=== PATIENT | female | born 1995 | race Caucasian/White ===

== ENCOUNTER → 2017-01-03 | Outpatient (CLI) | payer MEDICAID ==
--- NOTE | 2017-01-03 16:21 | REP ---
Clinical: Dyspnea . Comparison: 07/01/2004 . Technique: PA and lateral. Findings: The mediastinum and cardiac silhouette are stable scoliosis is again identified/unchanged. The lung muñoz are clear and without acute consolidation, effusion, or pneumothorax. The skeletal structures are intact and normal. Ventriculoperitoneal shunt noted along the right chest wall. Impression: 1. No acute cardiopulmonary process. Signed by Davi Gonzales MD 01/03/2017 04:13 P
== END | disposition home or self-care (01) ==
LOC: M LRY 15:45
PROVIDERS: ATTEND Nurse Practitioner Family
DX: R50.9 Fever, unspecified (principal)

== ENCOUNTER → 2017-04-10 | Outpatient (CLI) | payer MEDICAID | LOC: M LRY 09:23 | PROVIDERS: ATTEND Family Medicine | DX: Z53.8 Procedure and treatment not carried out for other reasons (principal) ==

== ENCOUNTER → 2018-08-19 | Outpatient (REF) | payer MEDICAID ==
[2018-08-19 12:35] LABS: BASO % 0.3 % (0.0-1.0); EOS % 0.6 % (0.0-3.0); HEMATOCRIT 42.2 % (36.0-47.0); HEMOGLOBIN 13.9 g/dl (12.0-15.5); IMMATURE GRANULOCYTE % 0.5 % (0-3.0); LYMPH # 2.8 10^3/uL (1.5-6.5); LYMPH % 42.2 % (24.0-44.0); MEAN CORPUSCULAR HEMOGLOBIN 31.9 pg (27.0-33.0); MEAN CORPUSCULAR HGB CONC 32.9 g/dl (32.0-36.5); MEAN CORPUSCULAR VOLUME 96.8 fl (80.0-96.0); MONO # 0.6 10^3/uL (0.0-0.8); MONO % 9.3 % (0.0-5.0); NEUTROPHILS # 3.1 10^3/uL (1.8-7.7); NEUTROPHILS % 47.1 % (36.0-66.0); PLATELET COUNT, AUTOMATED 354 10^3/uL (150-450); RED BLOOD COUNT 4.36 10^6/uL (4.00-5.40); RED CELL DISTRIBUTION WIDTH 12.3 % (11.5-14.5); WHITE BLOOD COUNT 6.6 10^3/uL (4.0-10.0)
[2018-08-19 12:42] LABS: ALBUMIN/GLOBULIN RATIO 1.11 (1.00-1.93); ALKALINE PHOSPHATASE 37 U/L (45-117); ALT/SGPT 54 U/L (12-78); ANION GAP 6 MEQ/L (8-16); AST/SGOT 30 U/L (7-37); BILIRUBIN,TOTAL 0.3 MG/DL (0.2-1.0); BLOOD UREA NITROGEN 14 MG/DL (7-18); CARBON DIOXIDE LEVEL 31 MEQ/L (21-32); CHLORIDE LEVEL 104 MEQ/L (98-107); CHOLESTEROL LEVEL 247 MG/DL (<200); CHOLESTEROL RISK RATIO 5.613 (<5); GLOMERULAR FILTRATION RATE > 60.0 (>60); GLUCOSE, FASTING 79 MG/DL (70-100); HDL CHOLESTEROL 44 MG/DL (>40); LDL CHOLESTEROL 136 MG/DL (<100); NON-HDL-C 203 MG/DL; PHENOBARBITAL LEVEL 14.6 UG/ML (15.0-40.0); POTASSIUM SERUM 4.7 MEQ/L (3.5-5.1); SODIUM LEVEL 141 MEQ/L (136-145); TOTAL PROTEIN 7.6 GM/DL (6.4-8.2); TRIGLYCERIDES LEVEL 336 MG/DL (<150)
== END ==
LOC: M LAB REF 12:07
DX: E78.2 Mixed hyperlipidemia (principal); E55.9 Vitamin D deficiency, unspecified; G40.89 Other seizures

== ENCOUNTER → 2020-10-20 | Outpatient (CLI) | payer SELFPAY ==
[~2020-10-20] MED LIST: ACET160O13 PO; ACET325S6 PO; ATOR1TAB19 PO; CETI5SOL3 PO; CHIL160L2 PO; COMBAER6 INH; CVS100LI4 PO; DEPA1CAP PO; FENO45CA3 PO; FLINCHW2 PO; GUAI100S51 PO; IBUP100S65 PO; IPRA0.00 INH; PHEN20EL4 PO
== END ==
LOC: M LABSMTC 12:22
PROVIDERS: ATTEND Pediatrics
DX: Z20.828 Contact with and (suspected) exposure to other viral communicable diseases (principal)

== ENCOUNTER 2020-10-21 11:00 | Observation (INO) | payer MEDICAID ==
[~2020-10-21] VITALS: Ht 147.3 cm; Wt 62.2 kg
[2020-10-21] MEDS ORDERED: FENO45CA3 PO (11:24)
[2020-10-21] MEDS ORDERED: CETI5SOL3 PO (11:24)
[2020-10-21] MEDS ORDERED: PHEN20EL4 PO ×2 (11:24)
[2020-10-21] MEDS ORDERED: ATOR1TAB19 PO (11:24)
[2020-10-21] MEDS ORDERED: IBUP100S65 PO (11:24)
[2020-10-21] MEDS ORDERED: CHIL160L2 PO (11:24)
[2020-10-21] MEDS ORDERED: DEPA1CAP PO (11:24)
[2020-10-21] MEDS ORDERED: NS 1,000 ML IV ONE (12:30)
[2020-10-21] MEDS ORDERED: cefTRIAXone SOD 1 GM in D5W MINI-BAG PLUS 50 ML IV ONE (12:30)
[2020-10-21 12:40] LABS: BASO % 0.5 % (0.0-1.0); EOS % 0.3 % (0.0-3.0); HEMATOCRIT 43.3 % (36.0-47.0); HEMOGLOBIN 13.9 g/dl (12.0-15.5); LYMPH # 0.8 10^3/uL (1.5-5.0); MEAN CORPUSCULAR HEMOGLOBIN 30.4 pg (27.0-33.0); MEAN CORPUSCULAR HGB CONC 32.1 g/dl (32.0-36.5); MEAN CORPUSCULAR VOLUME 94.7 fl (80.0-96.0); MONO # 0.4 10^3/uL (0.0-0.8); MONO % 10.8 % (0.0-5.0); NEUTROPHILS # 2.5 10^3/uL (1.5-8.5); NEUTROPHILS % 66.9 % (36.0-66.0); PLATELET COUNT, AUTOMATED 213 10^3/uL (150-450); RED BLOOD COUNT 4.57 10^6/uL (4.00-5.40); WHITE BLOOD COUNT 3.7 10^3/uL (4.0-10.0)
[2020-10-21 13:27] LABS: BLOOD UREA NITROGEN 6 MG/DL (7-18); CALCIUM LEVEL 9.4 MG/DL (8.5-10.1); CARBON DIOXIDE LEVEL 25 MEQ/L (21-32); CHLORIDE LEVEL 105 MEQ/L (98-107); GLOMERULAR FILTRATION RATE > 60.0 (>60); GLUCOSE, FASTING 96 MG/DL (70-100); POTASSIUM SERUM 3.7 MEQ/L (3.5-5.1); SODIUM LEVEL 136 MEQ/L (136-145)
--- NOTE | 2020-10-21 14:40 | REP ---
INDICATION: fever, cough. COMPARISON: Comparison chest x-ray January 03, 2017.. TECHNIQUE: Portable sitting AP radiograph. FINDINGS: A right-sided ventriculoperitoneal shunt catheter is noted in place coursing along the right chest. There is a dextroconvex curvature in the thoracic spine which is moderate in degree unchanged. The lungs are well inflated and free of infiltrate. Pleural angles are sharp. Heart size is normal. Pulmonary vasculature is not increased. IMPRESSION: No active disease. No infiltrate seen. <Electronically signed by Sinan Vargas > 10/21/20 1917
[2020-10-21] MEDS ORDERED: ALBUTEROL 90 MCG/ACT 8GM HFA INHALER INH ONE (15:15)
--- NOTE | 2020-10-21 16:03 | HPEPDOC ---
[facility] Medical History & Physical Date of Admission Oct 21, 2020 Date of Service: Oct 21, 2020 History and Physical CHIEF COMPLAINT: Fever HISTORY OF PRESENT ILLNESS: History was obtained from mother as patient is not able to provide a history due to cognitive impairment This is a 25-year-old female history of cerebral palsy and severe cognitive impairment who was brought in by her mother due to increased shortness of breath at home and fever reported as 104 at home. Mother says she also has a cough and brother recently but visited from [place] but is asymptomatic. Tells me patient otherwise has been around her baseline at home. She noticed she perhaps has been breathing a little heavier than normal and has some upper airway congestion, cough, and nasal congestion. Per mother at baseline she has significant cognitive delay, recognizes family, otherwise "doesn't remember what she had for lunch" PAST MEDICAL HISTORY: Cerebral palsy Seizure disorder PAST SURGICAL HISTORY: MILIEU THERAPIST Shunt Right 1 month old Double hernia repair, inguinal 7 months old R Hip surgery age 7 SOCIAL HISTORY: Per mother Shelia lives at home with her and doesn't drink alcohol smoke tobacco or use any illicit drugs. FAMILY HISTORY: Reviewed and none contributory. Mother healthy. ALLERGIES: Please see below. REVIEW OF SYSTEMS: Unable to obtain review of systems due to patient's cognitive impairment HOME MEDICATIONS: Please see below. PHYSICAL EXAMINATION: Constitutional: Awake and alert, in no apparent distress, mother at bedside ENT: Sclera are clear Respiratory: Lungs CTA bilaterally no wheezing. No respiratory distress. No use of accessory muscles. Saturating at 92% on room air Cardiovascular: RRR S1 and S2 are normal, no murmur Gastrointestinal: Abdomen is soft, non distended, non tender, BS present. Wears diapers Musculoskeletal: No lower extremity edema Neurologic: Severe cognitive impairment cannot follow instructions appropriately Skin: Warm, dry LABORATORY DATA: See below. IMAGING: Chest x-ray shown evidence no infiltrate or active process. MICROBIOLOGY: Please see below. ASSESSMENT/PLAN 25-year-old female history of cerebral palsy severe cognitive impairment otherwise healthy brought in by mother for increasing shortness of breath and fever home found to have Covid. Admitted for observation # Fever 2/2 COVID19 infection: Trend covid inflammatory markers Ferritin, D- dimer, LDH, CRP, procalcitonin. Fu BCx. Tylenol liquid PRN fever. CXR doesn't show infiltrates. Maintain o2 >90% with supplemental oxygen by NC. Albuterol inhaler PRN. No need for ramdasivir or steroids at this time due to very mild disease process. Not suspecting bacterial PNA, no ABx needed. IVFs slow rate. Repeat lactate normal. # Seizure disorder: continue phenobarb elixir, and depakote sprinkle. # Cerebral palsy and severe cognitive impairment: meds liquid if possible. Fall precautions. # DVT prophylaxis: Lovenox A Yousef Hospitalist Vital Signs Vital Signs Date Time Temp Pulse Resp B/P (MAP) Pulse Ox O2 Delivery O2 Flow Rate FiO2 10/21/20 11:54 20 91 Room Air 10/21/20 11:04 99.4 110 130/69 Laboratory Data Labs 24H Laboratory Tests 2 10/21/20 11:19: Urine Color YELLOW, Urine Appearance CLEAR, Urine pH 5.0, Urine Specific [place] 1.028, Urine Protein 1+H, Urine Glucose (UA) NEGATIVE, Urine Ketones NEGATIVE, Urine Blood NEGATIVE, Urine Nitrite NEGATIVE, Urine Bilirubin NEGATIVE, Urine Urobilinogen 0.2, Urine Leukocyte Esterase NEGATIVE, Urine WBC (Auto) 2, Urine RBC (Auto) 1, Urine Hyaline Casts (Auto) 0, Urine Bacteria (Auto) NEGATIVE, Urine Squamous Epithelial Cells 0, Urine Amorphous Sediment SMALLH, Urine Mucus (Auto) SMALL, Urine Sperm (Auto) 10/21/20 12:24: Immature Granulocyte % (Auto) 0.5, Neutrophils (%) (Auto) 66.9H, Lymphocytes (%) (Auto) 21.0L, Monocytes (%) (Auto) 10.8H, Eosinophils (%) (Auto) 0.3, Basophils (%) (Auto) 0.5, Neutrophils # (Auto) 2.5, Lymphocytes # (Auto) 0.8L, Monocytes # (Auto) 0.4, Eosinophils # (Auto) 0.0, Basophils # (Auto) 0.0, Nucleated Red Blood Cells % (auto) 0.0, Anion Gap 6L, Glomerular Filtration Rate > 60.0, Lactic Acid Level 2.5*H, Calcium Level 9.4 CBC/BMP Laboratory Tests 10/21/20 12:24 Microbiology Microbiology 10/21/20 Respiratory Virus Panel (PCR) (YAO) - Final, Complete SARS-CoV-2 (COVID 19) 10/21/20 Blood Culture, Received Pending Home Medications Scheduled Atorvastatin Calcium (Atorvastatin Calcium) 10 Mg Tablet, 10 MG PO QPM Cetirizine Hcl (Cetirizine HCl) 1 Mg/1 Ml Solution, 10 ML PO QHS Divalproex Sodium (Depakote Sprinkle) 125 Mg Cap., 375 MG PO BID SPRINKLE CONTENTS ONTO A SPOON WITH APPLESAUCE. Fenofibric Acid (Choline) (Fenofibric Acid) 45 Mg Capsule.dr, 45 MG PO QPM SPRINKLE CONTENTS ON SPOON WITH APPLESAUCE AND EVENING DOSE OF DEPAKOTE Phenobarbital (Phenobarbital) 20 Mg/5 Ml Elixir, 5 ML PO BID Scheduled PRN Acetaminophen (Children's [place]) 160 Mg/5 Ml Liquid, 20 ML PO Q4H PRN for PAIN / FEVER Ibuprofen (Ibuprofen) 100 Mg/5 Ml Oral.susp, 20 ML PO Q6H PRN for PAIN Allergies Coded Allergies: amoxicillin (Verified Allergy, Unknown, vomiting, 10/21/20) clavulanic acid (Verified Allergy, Unknown, vomiting, 10/21/20) diazepam (Verified Allergy, Unknown, 10/21/20) A-FIB/CHADSVASC A-FIB History Current/History of A-Fib/PAF?: No MARIE MADDEN MD Oct 21, 2020 16:03
[2020-10-21] MEDS ORDERED: COMBIVENT RESPIMAT 100-20MCG INHALER 4GM INH PRN (16:15)
[2020-10-21] MEDS ORDERED: ACETAMINOPHEN 325 MG/10.15 ML UDC PO ONE (17:00)
[2020-10-21] MEDS: NS 1,000 ML IV SCH (17:00)
[2020-10-21] MEDS ORDERED: IBUPROFEN 100 MG/5 ML SUSP UDC DYE FREE PO PRN (17:30)
[2020-10-21 17:43] LABS: INR 0.92; PROTHROMBIN TIME 12.6 SECONDS (12.5-14.3)
[2020-10-21 17:44] LABS: PARTIAL THROMBOPLASTIN TIME 23.7 SECONDS (24.2-38.5)
[2020-10-21 17:47] LABS: D-DIMER QUANT 678.84 ng/ml (<500)
[2020-10-21 17:54] LABS: ALBUMIN 3.1 GM/DL (3.2-5.2); ALT/SGPT 122 U/L (12-78); BILIRUBIN,DIRECT < 0.1 MG/DL (0.0-0.2); BILIRUBIN,TOTAL 0.1 MG/DL (0.2-1.0); C REACTIVE PROTEIN QUANTITATIV 3.01 MG/DL (0.00-0.30); FERRITIN 470 NG/ML (8-252); LDH LACTATE DEHYDROGENASE 217 U/L (84-246); TOTAL PROTEIN 6.8 GM/DL (6.4-8.2)
[2020-10-21 18:15] VITALS: BP 136/74
[2020-10-21 20:00] VITALS: BP 119/59; O2SAT 96
[2020-10-21] MEDS ORDERED: guaiFENesin SYRUP 200 MG/10 ML UDC PO PRN (20:15)
[2020-10-21] MEDS ORDERED: SODIUM CHLORIDE NASAL 0.65% SPRAY BTL (OCEAN) PRN (20:15)
[2020-10-21] MEDS ORDERED: CETIRIZINE (ZyrTEC) 5 MG/5 ML UDC DYE FREE PO SCH (21:00)
[2020-10-21] MEDS ORDERED: ATORVASTATIN 10 MG TAB PO SCH (21:00)
[2020-10-21] MEDS: DIVALPROEX SPRINKLE 125 MG CAP PO SCH (21:23)
[2020-10-21] MEDS: PHENobarbital ELIX 20 MG/5 ML UD PO SCH (21:24)
[2020-10-21] MEDS: ACETAMINOPHEN 325 MG/10.15 ML UDC PO PRN (23:51)
[2020-10-22] VITALS: O2SAT 94
[2020-10-22 04:00] VITALS: BP 92/53; O2SAT 92
--- NOTE | 2020-10-22 07:53 | IPNPDOC ---
Text Note Date of Service The patient was seen on 10/22/20. NOTE Subjective: Issue seen and examined this morning at bedside. Mother at bedside father was there on video call. Did well overnight. Continues to have fevers for which Tylenol and ibuprofen in combination are helping. Patient enjoys to sleep prone which happens to shown to have some benefit in Covid patients. I encouraged the patient to continue to prone home as tolerated. She was saturating at 98% on 2 L oxygen which is not necessary my goal is for oxygen to be at 90% or greater. She was taken off the oxygen and saturated well over 90%. Objective: Constitutional: Awake and alert, in no apparent distress, mother at bedside ENT: Sclera are clear Respiratory: Lungs CTA bilaterally no wheezing. No respiratory distress. No use of accessory muscles. Saturating at >90% on room air off of oxygen Cardiovascular: RRR S1 and S2 are normal, no murmur Gastrointestinal: Abdomen is soft, non distended, non tender. Wears diapers Musculoskeletal: No lower extremity edema Neurologic: Severe cognitive impairment cannot follow instructions appropriately Skin: Warm, dry Assessment/plan: 25-year-old female history of cerebral palsy severe cognitive impairment otherwise healthy brought in by mother for increasing shortness of breath and fever home found to have Covid. Admitted for observation # Fever 2/2 COVID19 infection: Trend covid inflammatory markers Ferritin, D-d robert, LDH, CRP, procalcitonin. Fu BCx. Tylenol liquid PRN fever. CXR doesn't show infiltrates. Mo2 is >90% off of o2. Albuterol inhaler PRN. No need for ramdasivir or steroids at this time due to mild disease process. Not suspecting bacterial PNA, no ABx needed. Repeat lactate normal with low volume IVFs. Patient discharged home on 10/22/2020 was symptomatically treatment of her fevers. Mother given instructions and instructed that both her father should self isolate per CDC recommendations # Seizure disorder: continue phenobarb elixir, and depakote sprinkle. # Cerebral palsy and severe cognitive impairment: meds liquid if possible. Fall precautions. # DVT prophylaxis: Lovenox A Yousef Hospitalist VS,Fishbone, I+O VS, Fishbone, I+O Laboratory Tests 10/21/20 12:24 Vital Signs Date Time Temp Pulse Resp B/P (MAP) Pulse Ox O2 Delivery O2 Flow Rate FiO2 10/22/20 04:00 98.9 85 22 92/53 (66) 93 Nasal Cannula 2.0 I&O- Last 24 Hours up to 6 AM 10/22/20 06:00 Intake Total 1450 ml Output Total 0 ml Balance 1450 ml MARIE MADDEN MD Oct 22, 2020 07:53
[2020-10-22 08:00] VITALS: BP 123/59; O2SAT 100
[2020-10-22 08:14] LABS: HEMATOCRIT 39.6 % (36.0-47.0); HEMOGLOBIN 12.7 g/dl (12.0-15.5); MEAN CORPUSCULAR HEMOGLOBIN 31.1 pg (27.0-33.0); MEAN CORPUSCULAR HGB CONC 32.1 g/dl (32.0-36.5); MEAN CORPUSCULAR VOLUME 96.8 fl (80.0-96.0); PLATELET COUNT, AUTOMATED 179 10^3/uL (150-450); RED BLOOD COUNT 4.09 10^6/uL (4.00-5.40); WHITE BLOOD COUNT 4.5 10^3/uL (4.0-10.0)
[2020-10-22 08:31] LABS: LYMPHOCYTES 39 % (16-44); MONOCYTES 2 % (0-5); NEUTROPHILS 54 % (28-66); NUCLEATED RED BLOOD CELL 1 % (0-0)
[2020-10-22 08:32] LABS: PLATELET ESTIMATE NORMAL (NORMAL)
[2020-10-22 08:33] LABS: INR 0.93; PROTHROMBIN TIME 12.7 SECONDS (12.5-14.3)
[2020-10-22 08:34] LABS: PARTIAL THROMBOPLASTIN TIME 29.3 SECONDS (24.2-38.5)
[2020-10-22 08:49] LABS: ALBUMIN 2.9 GM/DL (3.2-5.2); ALT/SGPT 114 U/L (12-78); BILIRUBIN,DIRECT < 0.1 MG/DL (0.0-0.2); BILIRUBIN,TOTAL 0.1 MG/DL (0.2-1.0); BLOOD UREA NITROGEN 8 MG/DL (7-18); CALCIUM LEVEL 7.9 MG/DL (8.5-10.1); CARBON DIOXIDE LEVEL 27 MEQ/L (21-32); CHLORIDE LEVEL 108 MEQ/L (98-107); CREATININE FOR GFR 0.59 MG/DL (0.55-1.30); FERRITIN 457 NG/ML (8-252); GLOMERULAR FILTRATION RATE > 60.0 (>60); GLUCOSE, FASTING 105 MG/DL (70-100); MAGNESIUM LEVEL 1.7 MG/DL (1.8-2.4); SODIUM LEVEL 142 MEQ/L (136-145); TOTAL PROTEIN 6.3 GM/DL (6.4-8.2)
[2020-10-22] MEDS ORDERED: ENOXAPARIN 40MG/0.4ML SYRINGE (J1650 PER 10MG) SC SCH (09:00)
[2020-10-22] MEDS: DIVALPROEX SPRINKLE 125 MG CAP PO SCH (09:52)
[2020-10-22] MEDS: ACETAMINOPHEN 325 MG/10.15 ML UDC PO PRN (09:52)
[2020-10-22] MEDS: PHENobarbital ELIX 20 MG/5 ML UD PO SCH (09:52)
[2020-10-22 11:30] VITALS: O2SAT 93
[2020-10-22] MEDS ORDERED: ACET325S6 PO (11:38)
[2020-10-22] MEDS ORDERED: GUAI100S51 PO (11:38)
[2020-10-22] MEDS ORDERED: COMBAER6 INH (11:38)
[2020-10-22] MEDS ORDERED: IBUP100S65 PO (11:42)
[2020-10-22] MEDS: NS 1,000 ML IV SCH (11:43)
--- NOTE | 2020-10-22 16:41 | ECGEPIP ---
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 Electronically Signed on 10-22-2020 16:41:50 EST by Manuel Cabrera
== END 2020-10-22 15:10 | disposition home health service (06) ==
LOC: EDBD 11:00 → M ED 11:00 → INTOOBSV 15:52 → EEVIPCON 15:52 → M ED INP 15:52 → M 4MAIN 18:20
PROVIDERS: ADMIT Family Medicine; ATTEND Family Medicine
DX: U07.1 COVID-19 (principal); R50.9 Fever, unspecified; R06.02 Shortness of breath; G80.9 Cerebral palsy, unspecified; F72 Severe intellectual disabilities; G40.909 Epilepsy, unspecified, not intractable, without status epilepticus; Z79.899 Other long term (current) drug therapy; Z88.0 Allergy status to penicillin; Z88.1 Allergy status to other antibiotic agents; Z88.8 Allergy status to other drugs, medicaments and biological substances
CPT/HCPCS: 36415; 71045; 80048; 80076; 81001; 82728; 83605; 83615; 83735; 84145; 85025; 85379; 85384; 85610; 85730; 86140; 87040; 87486; 87581; 87633; 87798; 93005; 96372; 96374; 99284; J1650

== ENCOUNTER 2020-10-25 20:17 | Inpatient (IN) | payer MEDICAID ==
[~2020-10-25] VITALS: Ht 147.3 cm; Wt 63.0 kg
[~2020-10-25 20:17] MED LIST changes: -ACET160O13 PO; -CVS100LI4 PO; -FLINCHW2 PO; -IPRA0.00 INH
[2020-10-25] MEDS ORDERED: NS 500 ML IV ONE ×2 (20:45→23:45)
[2020-10-25] MEDS ORDERED: ACETAMINOPHEN 325 MG/10.15 ML UDC PO ONE (20:45)
[2020-10-25] MEDS ORDERED: dexameTHASONE 4 MG/ML 1ML VIAL (J1100 PER 1MG) IV ONE (20:45)
[2020-10-25] MEDS ORDERED: ACETAMINOPHEN *IV* 650 MG in IV 1 EA IV ONE (21:15)
[2020-10-25 22:02] LABS: VENOUS BASE EXCESS 3.3 (-2.0-2.0); VENOUS HCO3 30.7 MEQ/L (23.0-27.0); VENOUS O2 SATURATION 54.8 % (60.0-80.0); VENOUS PARTIAL PRESSURE O2 31.8 mmHg (30.0-50.0); VENOUS PH 7.327 UNITS (7.330-7.430); VENOUS STANDARD HCO3 26.4 MEQ/L; VENOUS TOTAL CO2 32.6 MEQ/L (24.0-28.0)
[2020-10-25] MEDS ORDERED: CVS100LI4 PO (22:04)
[2020-10-25] MEDS ORDERED: FLINCHW2 PO (22:04)
[2020-10-25] MEDS ORDERED: ACET160O13 PO (22:04)
[2020-10-25] MEDS ORDERED: IBUP100S65 PO (22:04)
[2020-10-25] MEDS ORDERED: IPRA0.00 INH (22:04)
[2020-10-25 22:07] LABS: BASO % 0.1 % (0.0-1.0); EOS % 0.4 % (0.0-3.0); HEMATOCRIT 37.3 % (36.0-47.0); HEMOGLOBIN 11.5 g/dl (12.0-15.5); LYMPH # 1.7 10^3/uL (1.5-5.0); LYMPH % 21.4 % (24.0-44.0); MEAN CORPUSCULAR HEMOGLOBIN 29.9 pg (27.0-33.0); MEAN CORPUSCULAR HGB CONC 30.8 g/dl (32.0-36.5); MEAN CORPUSCULAR VOLUME 97.1 fl (80.0-96.0); MONO # 0.4 10^3/uL (0.0-0.8); NEUTROPHILS # 5.6 10^3/uL (1.5-8.5); NEUTROPHILS % 72.7 % (36.0-66.0); PLATELET COUNT, AUTOMATED 399 10^3/uL (150-450); RED BLOOD COUNT 3.84 10^6/uL (4.00-5.40); WHITE BLOOD COUNT 7.8 10^3/uL (4.0-10.0)
[2020-10-25 22:34] LABS: ALT/SGPT 106 U/L (12-78); BILIRUBIN,DIRECT < 0.1 MG/DL (0.0-0.2); BILIRUBIN,TOTAL 0.2 MG/DL (0.2-1.0); BLOOD UREA NITROGEN 6 MG/DL (7-18); CALCIUM LEVEL 8.8 MG/DL (8.5-10.1); CARBON DIOXIDE LEVEL 28 MEQ/L (21-32); CHLORIDE LEVEL 108 MEQ/L (98-107); CK-MB VALUE MASS 1.2 NG/ML (<3.6); CPK CREATINE PHOSPHOKINASE 272 U/L (26-192); CREATININE FOR GFR 0.56 MG/DL (0.55-1.30); FERRITIN 778 NG/ML (8-252); GLOMERULAR FILTRATION RATE > 60.0 (>60); GLUCOSE, FASTING 96 MG/DL (70-100); LDH LACTATE DEHYDROGENASE 433 U/L (84-246); MB/CK RELATIVE INDEX 0.44 (< OR =4); POTASSIUM SERUM 4.5 MEQ/L (3.5-5.1); SODIUM LEVEL 143 MEQ/L (136-145); TROPONIN I < 0.02 NG/ML (< 0.10)
[2020-10-25] MEDS ORDERED: guaiFENesin DM LIQ 10ML UD PO PRN (23:45)
[2020-10-26] VITALS (16 sets, daily range): BP systolic 97–130; BP diastolic 62–86; O2SAT 83–99
--- NOTE | 2020-10-26 00:58 | HPEPDOC ---
[facility] [place] Medical History & Physical Date of Admission Oct 25, 2020 Date of Service: Oct 25, 2020 Attending Physician: Scottie Schmitt MD History and Physical CHIEF COMPLAINT: cough, shortness of breath HISTORY OF PRESENT ILLNESS: Shelia Galdamez is a 25 YO F with history of Cerebral palsy recently admitted 10/21/20-10/22/20 for COVID19 infection who presents to the ED this evening with her mother with complaint of continued fevers, coughing, loss of appetite and shortness of breath. Since the patient was discharged on Thursday, her mother reports she has been having continuous fevers at around 101 and chills with bouts of severe coughing nonproductive of sputum. Her mother reports the patient has not had an appetite and has only been drinking chicken broth. She has also had diarrhea, about 10 bowel movements a day, worsened by her coughing. She is incontinent of stool and urine at baseline. Her mother reports she has tried giving nebulizer treatments, Mucinex, cough medication but the patient does not seem to have gotten better. She has been coughing to the point where her mother's fearful she is not catching her breath. Her mother is also Covid positive. In the ED, the patient was found to be febrile at 101.8 rectally and saturating in the low 90s on 4 L nasal cannula. 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 FAMILY HISTORY: Reviewed and none contributory. Mother healthy. ALLERGIES: Please see below. REVIEW OF SYSTEMS: Unable to obtain, due to patient's debility HOME MEDICATIONS: Please see below. PHYSICAL EXAMINATION: VITAL SIGNS: see below GENERAL: Laying flat in bed, groaning HEENT: PERRL, EOMI, Oral mucous membranes are dry without lesions. NECK: unable to assess JVD. No adenopathy is appreciated. No thyromegaly CHEST/LUNGS: Patient is rhoncherous in all lung muñoz bilaterally. There is no subcutaneous air appreciated. There is no tenderness to the chest wall. HEART: tachycardic rate, regular rhythm. No murmurs, rubs, or gallops are appreciated. Distal pulses are 2+. No carotid bruits appreciated. ABDOMEN: Soft, slightly tender to deep palpation in RLQ/LLQ, and nondistended. Bowel sounds are positive. No organomegaly is appreciated. No masses are appreciated. There are no peritoneal signs. There is no [place] sign. EXTREMITIES: No peripheral edema. There is no focal long bone tenderness or defo rmity. SKIN: The patients skin is warm and dry, without rashes or lesions. PSYCHIATRIC: unable to assess NEUROLOGIC: unable to assess LABORATORY DATA: See below. IMAGING: CXR: Official read pending MICROBIOLOGY: Please see below. ASSESSMENT: This is a 25 YO F with history of cerebral palsy who presents with fevers, chills, loss of appetite and diarrhea in the setting of ongoing COVID-19 infection found to have hypoxia. PLAN: 1. Acute hypoxia secondary to COVID19 infection: -patient is saturating in low 90s on 4L nasal cannula in ED. oxygen titration orders, keep patient greater than 90% -Dexamethasone 6 mg IV daily -Davidson Sparksitusrobina Mucinex for cough -IV Tylenol for fevers -Continuous IV fluids 100 mL an hour -Lovenox for DVT prophylaxis 2. History of seizures: -The patient's mother reports she has not had a seizure in over 15 years -Continue home Depakote, phenobarbital 3. Hypercholesterolemia: -Continue home Lipitor DVT prophylaxis: Lovenox DISPO: Admit to COVID floor, pending clinical improvement Vital Signs Vital Signs Date Time Temp Pulse Resp B/P (MAP) Pulse Ox O2 Delivery O2 Flow Rate FiO2 10/25/20 22:30 91 28 124/61 (82) 94 Nasal Cannula 4.0 10/25/20 21:35 93 10/25/20 20:33 101.8 Laboratory Data Labs 24H Laboratory Tests 2 10/25/20 20:34: Immature Granulocyte % (Auto) 0.4, Neutrophils (%) (Auto) 72.7H, Lymphocytes (%) (Auto) 21.4L, Monocytes (%) (Auto) 5.0, Eosinophils (%) (Auto) 0.4, Basophils (%) (Auto) 0.1, Neutrophils # (Auto) 5.6, Lymphocytes # (Auto) 1.7, Monocytes # (Auto) 0.4, Eosinophils # (Auto) 0.0, Basophils # (Auto) 0.0, Nucleated Red Blood Cells % (auto) 0.3H, D-Dimer, Quantitative 1600.41H, Lactic Acid Level 3.8*H 10/25/20 20:35: Anion Gap 7L, Glomerular Filtration Rate > 60.0, Calcium Level 8.8, Ferritin 778H, Total Bilirubin 0.2, Direct Bilirubin < 0.1, Aspartate Amino Transf (AST/SGOT) 85H, Alanine Aminotransferase (ALT/SGPT) 106H, Alkaline Phosphatase 52, Lactate Dehydrogenase 433H, Total Creatine Kinase 272H, Creatine Kinase MB 1.2, Creatine Kinase MB Relative Index 0.44, Troponin I < 0.02, C-Reactive Protein, Quantitative 5.60H, Total Protein 7.0, Albumin 3.0L, Albumin/Globulin Ratio 0.8L 10/25/20 20:38: Blood Gas Bicarbonate Standard 26.4, Venous Blood pH 7.327L, Venous Blood Partial Pressure CO2 60.0H, Venous Blood Partial Pressure O2 31.8, Venous Blood Total Carbon Dioxide 32.6H, Venous Blood HCO3 30.7H, Venous Blood Oxygen Satu ration 54.8L, Venous Blood Base Excess 3.3H CBC/BMP Laboratory Tests 10/25/20 20:34 10/25/20 20:35 Microbiology Microbiology 10/25/20 Blood Culture, Received Pending 10/25/20 Blood Culture, Received Pending Home Medications Scheduled Atorvastatin Calcium (Atorvastatin Calcium) 10 Mg Tablet, 10 MG PO QHS Cetirizine Hcl (Cetirizine HCl) 1 Mg/1 Ml Solution, 10 ML PO QHS Divalproex Sodium (Depakote Sprinkle) 125 Mg Cap.spr, 375 MG PO BID SPRINKLE CONTENTS ONTO A SPOON WITH APPLESAUCE. Fenofibric Acid (Choline) (Fenofibric Acid) 45 Mg Capsule.dr, 45 MG PO QHS SPRINKLE CONTENTS ON SPOON WITH APPLESAUCE AND EVENING DOSE OF DEPAKOTE Multivitamin (Flintstones) 1 Each Tab.chew, 1 CHW PO QHS Phenobarbital (Phenobarbital) 20 Mg/5 Ml Elixir, 5 ML PO BID Scheduled PRN Acetaminophen (Children's Tylenol) 160 Mg/5 Ml Oral.susp, 640 MG PO Q4H PRN for PAIN / FEVER Guaifenesin (Tussin) 100 Mg/5 Ml Liquid, 400 MG PO Q4H PRN for CONGESTION Ibuprofen (Ibuprofen) 100 Mg/5 Ml Oral.susp, 400 MG PO Q6H PRN for PAIN / FEVER Ipratropium/Albuterol Sulfate (Iprat-Albut 0.5-3(2.5) mg/3 ml) 3 Ml Ampul.neb, 3 ML INH Q6H PRN for SHORTNESS OF BREATH Allergies Coded Allergies: amoxicillin (Verified Allergy, Unknown, vomiting, 10/21/20) clavulanic acid (Verified Allergy, Unknown, vomiting, 10/21/20) diazepam (Verified Allergy, Unknown, 10/21/20) GME ATTESTATION ATTENDING NOTE Family Medicine Attending Note: I was present on site to supervise [the resident]. We discussed the history and exam. I did not have a [id number] encounter with the patient per recent updated guidelines which allow us to have only one physician seeing COVID patient's. We conferred on the assessment and plan; I agree with the note as documented. Ms. Galdamez does need further support in the inpatient setting. Additionally I know her mother is trying as best she can, but her capacity to care for this patient while the mother herself is sick is likely reduced. (mercerizing range feeder) CHEYENNE RAYA MD Oct 25, 2020 22:59 Scottie Schmitt MD Oct 26, 2020 05:49
[2020-10-26] MEDS ORDERED: ACETAMINOPHEN *IV* 1,000 MG in IV 1 EA IV ONE (03:00)
[2020-10-26] MEDS: CETIRIZINE (ZyrTEC) 5 MG/5 ML UDC DYE FREE PO SCH ×3 (03:43→20:40)
[2020-10-26] MEDS: BENZONATATE 100 MG CAP PO SCH ×5 (03:44→20:42)
[2020-10-26] MEDS: DIVALPROEX SPRINKLE 125 MG CAP PO SCH ×3 (03:44→20:41)
[2020-10-26] MEDS: PHENobarbital ELIX 20 MG/5 ML UD PO SCH ×3 (03:44→20:42)
[2020-10-26] MEDS: NS 1,000 ML IV SCH ×2 (03:45→10:35)
[2020-10-26] MEDS: guaiFENesin 200 MG TAB PO SCH ×3 (07:32→20:57)
[2020-10-26 07:48] LABS: HEMOGLOBIN 10.2 g/dl (12.0-15.5); MEAN CORPUSCULAR HEMOGLOBIN 30.4 pg (27.0-33.0); MEAN CORPUSCULAR HGB CONC 31.9 g/dl (32.0-36.5); MEAN CORPUSCULAR VOLUME 95.5 fl (80.0-96.0); PLATELET COUNT, AUTOMATED 380 10^3/uL (150-450); RED BLOOD COUNT 3.35 10^6/uL (4.00-5.40); WHITE BLOOD COUNT 5.6 10^3/uL (4.0-10.0)
[2020-10-26 08:08] LABS: ALBUMIN 2.5 GM/DL (3.2-5.2); ALT/SGPT 80 U/L (12-78); BILIRUBIN,TOTAL 0.3 MG/DL (0.2-1.0); BLOOD UREA NITROGEN 5 MG/DL (7-18); CALCIUM LEVEL 8.4 MG/DL (8.5-10.1); CARBON DIOXIDE LEVEL 29 MEQ/L (21-32); CHLORIDE LEVEL 110 MEQ/L (98-107); CREATININE FOR GFR 0.47 MG/DL (0.55-1.30); GLOMERULAR FILTRATION RATE > 60.0 (>60); GLUCOSE, FASTING 93 MG/DL (70-100); MAGNESIUM LEVEL 1.9 MG/DL (1.8-2.4); POTASSIUM SERUM 4.1 MEQ/L (3.5-5.1); SODIUM LEVEL 144 MEQ/L (136-145); TOTAL PROTEIN 6.1 GM/DL (6.4-8.2)
--- NOTE | 2020-10-26 08:19 | REP ---
INDICATION: DYSPNEA/COUGH. Repeat dictation. Preliminary report is provided at the time of the exam by maxi OQUENDO. COMPARISON: Comparison chest x-ray October 21, 2020. TECHNIQUE: Portable upright AP chest radiograph. FINDINGS: There are bilateral mixed alveolar and interstitial infiltrates fairly extensively in the perihilar regions and left lower lobe region. Pleural angles are sharp. Heart is not enlarged. There is a dextroconvex curvature in the thoracic spine. Relatively low level of inspiration.. A right-sided ventriculoperitoneal shunt catheter is noted in place.. IMPRESSION: Fairly extensive bilateral infiltrates consistent with pneumonia.. <Electronically signed by Sinan Vargas > 10/26/20 [id number]
[2020-10-26 08:32] LABS: INR 0.93; PARTIAL THROMBOPLASTIN TIME 30.7 SECONDS (24.2-38.5); PROTHROMBIN TIME 12.7 SECONDS (12.5-14.3)
[2020-10-26 08:34] LABS: D-DIMER QUANT 1220.14 ng/ml (<500)
[2020-10-26 08:47] LABS: C REACTIVE PROTEIN QUANTITATIV 5.62 MG/DL (0.00-0.30); FERRITIN 551 NG/ML (8-252); LDH LACTATE DEHYDROGENASE 298 U/L (84-246); TRIGLYCERIDES LEVEL 298 MG/DL (<150); TROPONIN I < 0.02 NG/ML (< 0.10)
[2020-10-26] MEDS ORDERED: guaiFENesin ER 600 MG TAB PO SCH (09:00)
[2020-10-26] MEDS ORDERED: ENOXAPARIN 40MG/0.4ML SYRINGE (J1650 PER 10MG) SC SCH (09:00)
[2020-10-26] MEDS: ENOXAPARIN 60MG/0.6ML SYRINGE (J1650 PER 10MG) SC SCH ×2 (09:17→20:41)
[2020-10-26] MEDS: dexameTHASONE 20MG/5ML VIAL (J1100 PER 1MG) IV SCH (09:18)
[2020-10-26 10:14] LABS: HEPATITIS B SURFACE ANTIGEN NEGATIVE (NEGATIVE)
[2020-10-26 10:25] LABS: HIV 1&2 SCREEN CENTAUR NEGATIVE (NEGATIVE)
--- NOTE | 2020-10-26 16:35 | IPNPDOC ---
Text Note Date of Service The patient was seen on 10/26/20. NOTE Subjective: patient has severe intellectual disability and unable to provide answers. I saw patient and did physical examination. Objective: GENERAL APPEARANCE: Young female with cerebral palsy HEENT: no scleral icterus, no JVD, EOMI CARDIOVASCULAR: S1S2 LUNGS: Bilateral rhonchi ABDOMEN: soft & not tender w palpitation MUSCULOSKELETAL: no cyanosis, no swelling INTEGUMENT: no generalized palor NEUROLOGICAL: cranial nerve function from 2-12 intact Assessment and plan This is a 25 YO F with history of cerebral palsy who presents with fevers, chills, loss of appetite and diarrhea in the setting of ongoing COVID-19 infection found to have hypoxia. Acute hypoxemic respiratory failure Secondary to viral pneumonia secondary to COVID-19 Dexamethasone IV, Remdesevir IV Therapeutic dose of Lovenox Pneumonia Secondary to COVID-19 Fairly extensive bilateral infiltrates consistent with pneumonia.. History of seizures Continue home Depakote, phenobarbital Hypercholesterolemia Continue home Lipitor VS,Fishbone, I+O VS, Fishbone, I+O Laboratory Tests 10/25/20 20:34 10/25/20 20:35 10/26/20 07:11 Vital Signs Date Time Temp Pulse Resp B/P (MAP) Pulse Ox O2 Delivery O2 Flow Rate FiO2 10/26/20 14:00 95 High Flow Mask 7.0 10/26/20 12:00 100.0 92 21 118/86 (97) 10/25/20 21:35 93 I&O- Last 24 Hours up to 6 AM 10/26/20 06:00 Intake Total 1065 ml Balance 1065 ml BLADIMIR ZUNIGA DO Oct 26, 2020 16:35
[2020-10-26] MEDS: ATORVASTATIN 10 MG TAB PO SCH (20:39)
[2020-10-27] VITALS (16 sets, daily range): BP systolic 108–122; BP diastolic 62–67; O2SAT 90–98
[2020-10-27] MEDS ORDERED: ACETAMINOPHEN *IV* 650 MG in IV 1 EA IV ONE (01:30)
[2020-10-27] MEDS: BENZONATATE 100 MG CAP PO SCH ×5 (05:34→21:12)
[2020-10-27] MEDS: guaiFENesin 200 MG TAB PO SCH ×3 (05:34→20:28)
[2020-10-27 07:26] LABS: BASO % 0.1 % (0.0-1.0); EOS % 0.3 % (0.0-3.0); HEMATOCRIT 32.1 % (36.0-47.0); HEMOGLOBIN 10.2 g/dl (12.0-15.5); LYMPH # 2.2 10^3/uL (1.5-5.0); LYMPH % 31.7 % (24.0-44.0); MEAN CORPUSCULAR HEMOGLOBIN 30.7 pg (27.0-33.0); MEAN CORPUSCULAR HGB CONC 31.8 g/dl (32.0-36.5); MEAN CORPUSCULAR VOLUME 96.7 fl (80.0-96.0); MONO # 0.4 10^3/uL (0.0-0.8); MONO % 5.7 % (0.0-5.0); NEUTROPHILS # 4.2 10^3/uL (1.5-8.5); NEUTROPHILS % 60.9 % (36.0-66.0); PLATELET COUNT, AUTOMATED 442 10^3/uL (150-450); RED BLOOD COUNT 3.32 10^6/uL (4.00-5.40); WHITE BLOOD COUNT 6.9 10^3/uL (4.0-10.0)
[2020-10-27 07:48] LABS: ALBUMIN 2.4 GM/DL (3.2-5.2); ALT/SGPT 66 U/L (12-78); BILIRUBIN,DIRECT 0.1 MG/DL (0.0-0.2); BILIRUBIN,TOTAL 0.4 MG/DL (0.2-1.0); BLOOD UREA NITROGEN 9 MG/DL (7-18); CALCIUM LEVEL 8.7 MG/DL (8.5-10.1); CARBON DIOXIDE LEVEL 31 MEQ/L (21-32); CHLORIDE LEVEL 110 MEQ/L (98-107); CREATININE FOR GFR 0.54 MG/DL (0.55-1.30); FERRITIN 528 NG/ML (8-252); GLOMERULAR FILTRATION RATE > 60.0 (>60); GLUCOSE, FASTING 90 MG/DL (70-100); NT-PRO BNP 922 PG/ML (<125); POTASSIUM SERUM 3.6 MEQ/L (3.5-5.1); SODIUM LEVEL 143 MEQ/L (136-145)
[2020-10-27 07:52] LABS: C REACTIVE PROTEIN QUANTITATIV 5.38 MG/DL (0.00-0.30); TROPONIN I < 0.02 NG/ML (< 0.10)
[2020-10-27] MEDS: ENOXAPARIN 60MG/0.6ML SYRINGE (J1650 PER 10MG) SC SCH ×2 (08:37→20:28)
[2020-10-27] MEDS: PHENobarbital ELIX 20 MG/5 ML UD PO SCH ×2 (08:38→20:28)
[2020-10-27] MEDS: dexameTHASONE 20MG/5ML VIAL (J1100 PER 1MG) IV SCH (08:38)
[2020-10-27] MEDS: DIVALPROEX SPRINKLE 125 MG CAP PO SCH ×2 (08:38→20:29)
--- NOTE | 2020-10-27 09:20 | ECGEPIP ---
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
[2020-10-27] MEDS: LR 1,000 ML IV SCH (14:02)
--- NOTE | 2020-10-27 19:55 | IPNPDOC ---
Text Note Date of Service The patient was seen on 10/27/20. NOTE Subjective: patient has severe intellectual disability and unable to provide answers. Father is present in the room who provides most of the history. The patient continues to have a poor appetite, and per his assessment she is certainly not back to her baseline. Additionally, he reports that she is now beginning to cough and choke a time she is eating or taking pills. Typically at home she is able to feed herself without any issues, therefore this is certainly a change in status. Objective: GENERAL APPEARANCE: Young female with cerebral palsy HEENT: no scleral icterus, no JVD, EOMI CARDIOVASCULAR: Regular rate and rhythm with no murmurs, rubs, or gallops LUNGS: Bilateral rhonchi ABDOMEN: soft & not tender w palpitation MUSCULOSKELETAL: no cyanosis, no swelling INTEGUMENT: no generalized palor NEUROLOGICAL: cranial nerve function from 2-12 intact Assessment and plan This is a 25 YO F with history of cerebral palsy who presents with fevers, chills, loss of appetite and diarrhea in the setting of ongoing COVID-19 infection found to have hypoxia. Acute hypoxemic respiratory failure Secondary to viral pneumonia secondary to COVID-19 Dexamethasone IV, Remdesevir IV Therapeutic dose of Lovenox Continues to require oxygen supplementation Pneumonia Secondary to COVID-19 Fairly extensive bilateral infiltrates consistent with pneumonia. Coughing and choking with any oral intake This is certainly a departure from her baseline. Speech therapy consultation requested. We will keep her nothing by mouth except for medications until seen and evaluated by speech therapy. Poor appetite Will give her gentle lactated Ringer's rehydration until she is able to tolerate oral intake History of seizures Continue home Depakote, phenobarbital Hypercholesterolemia Continue home Lipitor VS,Fishbone, I+O VS, Fishbone, I+O Laboratory Tests 10/27/20 07:00 Vital Signs Date Time Temp Pulse Resp B/P (MAP) Pulse Ox O2 Delivery O2 Flow Rate FiO2 10/27/20 18:00 98 Nasal Cannula 6.0 10/27/20 16:00 98.5 75 20 108/66 (80) 10/25/20 21:35 93 I&O- Last 24 Hours up to 6 AM 10/27/20 06:00 Intake Total 2096 ml Balance 2096 ml DIANE OVALLE DO Oct 27, 2020 19:55
[2020-10-27] MEDS: ATORVASTATIN 10 MG TAB PO SCH (20:29)
[2020-10-27] MEDS: CETIRIZINE (ZyrTEC) 5 MG/5 ML UDC DYE FREE PO SCH ×2 (20:30→21:00)
[2020-10-28] VITALS (17 sets, daily range): BP systolic 104–128; BP diastolic 48–76; O2SAT 92–100
[2020-10-28] MEDS: ONDANSETRON 4MG/2ML VIAL IV PRN ×4 (01:53→21:39)
[2020-10-28] MEDS: LR 1,000 ML IV SCH ×2 (03:44→17:58)
[2020-10-28] MEDS: BENZONATATE 100 MG CAP PO SCH ×3 (05:57→21:37)
[2020-10-28] MEDS: guaiFENesin 200 MG TAB PO SCH ×3 (05:57→21:36)
[2020-10-28 07:57] LABS: BASO % 0.5 % (0.0-1.0); EOS % 0.5 % (0.0-3.0); HEMATOCRIT 32.4 % (36.0-47.0); HEMOGLOBIN 10.2 g/dl (12.0-15.5); LYMPH # 2.3 10^3/uL (1.5-5.0); LYMPH % 37.2 % (24.0-44.0); MEAN CORPUSCULAR HEMOGLOBIN 30.4 pg (27.0-33.0); MEAN CORPUSCULAR HGB CONC 31.5 g/dl (32.0-36.5); MEAN CORPUSCULAR VOLUME 96.7 fl (80.0-96.0); MONO # 0.5 10^3/uL (0.0-0.8); MONO % 7.6 % (0.0-5.0); NEUTROPHILS # 3.1 10^3/uL (1.5-8.5); NEUTROPHILS % 51.4 % (36.0-66.0); PLATELET COUNT, AUTOMATED 553 10^3/uL (150-450); RED BLOOD COUNT 3.35 10^6/uL (4.00-5.40); WHITE BLOOD COUNT 6.1 10^3/uL (4.0-10.0)
[2020-10-28 08:35] LABS: BLOOD UREA NITROGEN 12 MG/DL (7-18); CARBON DIOXIDE LEVEL 29 MEQ/L (21-32); CHLORIDE LEVEL 106 MEQ/L (98-107); CREATININE FOR GFR 0.36 MG/DL (0.55-1.30); GLOMERULAR FILTRATION RATE > 60.0 (>60); GLUCOSE, FASTING 85 MG/DL (70-100); POTASSIUM SERUM 4.1 MEQ/L (3.5-5.1); SODIUM LEVEL 142 MEQ/L (136-145)
[2020-10-28 08:36] LABS: ALBUMIN 2.5 GM/DL (3.2-5.2); ALT/SGPT 67 U/L (12-78); BILIRUBIN,DIRECT 0.1 MG/DL (0.0-0.2); BILIRUBIN,TOTAL 0.4 MG/DL (0.2-1.0); C REACTIVE PROTEIN QUANTITATIV 4.56 MG/DL (0.00-0.30); CALCIUM LEVEL 8.6 MG/DL (8.5-10.1); FERRITIN 464 NG/ML (8-252); MAGNESIUM LEVEL 1.9 MG/DL (1.8-2.4); NT-PRO BNP 669 PG/ML (<125); TOTAL PROTEIN 6.3 GM/DL (6.4-8.2)
[2020-10-28] MEDS: dexameTHASONE 20MG/5ML VIAL (J1100 PER 1MG) IV SCH (08:37)
[2020-10-28] MEDS: PHENobarbital ELIX 20 MG/5 ML UD PO SCH ×2 (08:38→21:36)
[2020-10-28] MEDS: DIVALPROEX SPRINKLE 125 MG CAP PO SCH ×2 (08:38→21:35)
[2020-10-28] MEDS: ENOXAPARIN 60MG/0.6ML SYRINGE (J1650 PER 10MG) SC SCH ×2 (08:39→21:37)
[2020-10-28] MEDS: SIMETHICONE 40MG/0.6ML DROPS 30ML PO PRN ×2 (10:18→21:39)
[2020-10-28] MEDS: PANTOPRAZOLE 40MG VIAL (C9113 PER 1) IV SCH (11:57)
--- NOTE | 2020-10-28 15:51 | IPN ---
PROGRESS NOTE DATE: 10/28/2020 SUBJECTIVE: Shelia is seen on 4 main admitted with COVID pneumonia with acute hypoxemic respiratory failure. She has a history of cerebral palsy, seizures, and hyperlipidemia. She is having some trouble with swallowing, coughing with eating that per her father has gotten better in the last 12 hours. No seizures have been noted. No stools since admission, but had perfuse diarrhea on . OBJECTIVE: VITAL SIGNS: Blood pressure 104/64, temperature 98.5 degrees, O2 saturation 97% on high-flow cannula. GENERAL APPEARANCE: Resting comfortably. HEENT: Unremarkable. LUNGS: Scattered rhonchi. HEART: Regular rhythm. ABDOMEN: Soft and nontender. No peripheral edema. Abdomen has no masses. LABORATORY DATA: White count 6.1, hemoglobin 10.2, platelets 553,000. Sodium 142, potassium 4.1, BUN 12, creatinine 0.3, glucose 85. Ferritin is progressively lower it is down to 464. C-reactive protein is falling steadily it is down to 4.5. ASSESSMENT AND PLAN: 1. COVID pneumonia. She is on intravenous (IV) Decadron 6 mg daily, remdesivir daily. 2. Abdominal distress. Seems to have responded to Zofran, although father said it wore off "pretty quickly" when increased the frequency of this. I will also add intravenous proton pump inhibitor (PPI) as she could have some gastritis from the steroids. 3. Cerebral palsy with seizures. This is stable. 4. Hyperlipidemia. Continue atorvastatin. 5. Swallowing difficulties. Speech therapy is pending.
[2020-10-28] MEDS: CETIRIZINE (ZyrTEC) 5 MG/5 ML UDC DYE FREE PO SCH (21:00)
[2020-10-28] MEDS: ATORVASTATIN 10 MG TAB PO SCH (21:37)
[2020-10-29] VITALS: O2SAT 95
[2020-10-29 02:00] VITALS: O2SAT 98
[2020-10-29 03:00] VITALS: O2SAT 98
[2020-10-29 04:00] VITALS: O2SAT 98
[2020-10-29] MEDS: LR 1,000 ML IV SCH ×2 (06:05→21:30)
[2020-10-29] MEDS: guaiFENesin 200 MG TAB PO SCH ×3 (06:05→21:33)
[2020-10-29] MEDS: BENZONATATE 100 MG CAP PO SCH ×3 (06:05→21:35)
[2020-10-29] MEDS: ONDANSETRON 4MG/2ML VIAL IV PRN ×2 (06:27→21:34)
[2020-10-29 07:11] LABS: BASO % 0.6 % (0.0-1.0); EOS % 0.3 % (0.0-3.0); HEMOGLOBIN 10.7 g/dl (12.0-15.5); LYMPH # 2.9 10^3/uL (1.5-5.0); LYMPH % 43.3 % (24.0-44.0); MEAN CORPUSCULAR HEMOGLOBIN 30.1 pg (27.0-33.0); MEAN CORPUSCULAR HGB CONC 31.5 g/dl (32.0-36.5); MEAN CORPUSCULAR VOLUME 95.8 fl (80.0-96.0); MONO # 0.5 10^3/uL (0.0-0.8); MONO % 7.4 % (0.0-5.0); NEUTROPHILS % 45.2 % (36.0-66.0); PLATELET COUNT, AUTOMATED 648 10^3/uL (150-450); RED BLOOD COUNT 3.55 10^6/uL (4.00-5.40); WHITE BLOOD COUNT 6.6 10^3/uL (4.0-10.0)
[2020-10-29 07:43] LABS: ALBUMIN 2.6 GM/DL (3.2-5.2); ALT/SGPT 74 U/L (12-78); BILIRUBIN,DIRECT 0.2 MG/DL (0.0-0.2); BILIRUBIN,TOTAL 0.4 MG/DL (0.2-1.0); BLOOD UREA NITROGEN 11 MG/DL (7-18); C REACTIVE PROTEIN QUANTITATIV 2.59 MG/DL (0.00-0.30); CALCIUM LEVEL 8.4 MG/DL (8.5-10.1); CARBON DIOXIDE LEVEL 33 MEQ/L (21-32); CHLORIDE LEVEL 104 MEQ/L (98-107); CREATININE FOR GFR 0.51 MG/DL (0.55-1.30); FERRITIN 514 NG/ML (8-252); GLOMERULAR FILTRATION RATE > 60.0 (>60); GLUCOSE, FASTING 72 MG/DL (70-100); MAGNESIUM LEVEL 1.9 MG/DL (1.8-2.4); NT-PRO BNP 393 PG/ML (<125); SODIUM LEVEL 141 MEQ/L (136-145); TOTAL PROTEIN 6.4 GM/DL (6.4-8.2)
[2020-10-29 08:00] VITALS: BP 90/52
[2020-10-29] MEDS: PHENobarbital ELIX 20 MG/5 ML UD PO SCH ×2 (10:35→21:32)
[2020-10-29] MEDS: DIVALPROEX SPRINKLE 125 MG CAP PO SCH ×2 (10:35→21:31)
[2020-10-29] MEDS: PANTOPRAZOLE 40MG VIAL (C9113 PER 1) IV SCH (10:36)
[2020-10-29] MEDS: ENOXAPARIN 60MG/0.6ML SYRINGE (J1650 PER 10MG) SC SCH ×2 (10:36→21:33)
[2020-10-29] MEDS: dexameTHASONE 20MG/5ML VIAL (J1100 PER 1MG) IV SCH (10:36)
--- NOTE | 2020-10-29 11:02 | IPN ---
PROGRESS NOTE DATE: 10/29/2020 SUBJECTIVE: Shelia is seen on [address] Her father thinks that she is doing better today. She did have a few bowel movements yesterday, does not seem to having as much nausea although she still indicates some abdominal discomfort (this could be hunger she has not eaten and we are waiting on her swallowing study). She was started on IV Protonix yesterday for presumed steroid induced gastritis and perhaps that has helped as well. Her pulmonary status is stable between 5 and 6 liters nasal cannula. PHYSICAL EXAMINATION: VITAL SIGNS: Blood pressure 90/52, 99.3 degrees, O2 saturation 94%. GENERAL APPEARANCE: Nonverbal but follows commands. LUNGS: Better than yesterday with scattered rhonchi. HEART: Rhythm is regular. ABDOMEN: Soft, nontender. No masses. EXTREMITIES: No peripheral edema. LABORATORY DATA: Sodium 141, potassium 4, BUN 11, creatinine 0.5. C-reactive protein has gone from 4.5 to 2.6. Ferritin is mildly elevated, it has gone from 460 to 514. IMPRESSION/PLAN: 1. Pneumonia associated with COVID-19. She is on intravenous Decadron, Remdesivir, high flow oxygen. Pulmonary status appears stable. 2. Presumed steroid induced gastritis, symptoms have improved with IV Protonix. She also uses Zofran as needed. 3. Cerebral palsy with seizure, she is nonverbal. She has had no seizures. 4. Swallowing difficulties. She is currently NPO. Speech Therapy is pending. Some of the abdominal discomfort could be hunger pangs. Waiting to hear back after her Speech Therapy evaluation.
[2020-10-29 20:00] VITALS: BP 120/80
[2020-10-29] MEDS: ATORVASTATIN 10 MG TAB PO SCH (21:32)
[2020-10-29] MEDS: CETIRIZINE (ZyrTEC) 5 MG/5 ML UDC DYE FREE PO SCH (21:50)
[2020-10-30] VITALS (7 sets, daily range): BP systolic 105–124; BP diastolic 54–72; O2SAT 94–97
[2020-10-30] MEDS: ONDANSETRON 4MG/2ML VIAL IV PRN (06:12)
[2020-10-30] MEDS: guaiFENesin 200 MG TAB PO SCH ×3 (06:12→21:36)
[2020-10-30] MEDS: BENZONATATE 100 MG CAP PO SCH ×3 (06:12→21:36)
[2020-10-30 06:42] LABS: BASO % 0.4 % (0.0-1.0); EOS % 0.5 % (0.0-3.0); HEMATOCRIT 34.3 % (36.0-47.0); HEMOGLOBIN 10.9 g/dl (12.0-15.5); LYMPH # 3.1 10^3/uL (1.5-5.0); LYMPH % 42.2 % (24.0-44.0); MEAN CORPUSCULAR HEMOGLOBIN 30.2 pg (27.0-33.0); MEAN CORPUSCULAR HGB CONC 31.8 g/dl (32.0-36.5); MONO # 0.7 10^3/uL (0.0-0.8); MONO % 9.2 % (0.0-5.0); NEUTROPHILS # 3.3 10^3/uL (1.5-8.5); NEUTROPHILS % 44.8 % (36.0-66.0); PLATELET COUNT, AUTOMATED 707 10^3/uL (150-450); RED BLOOD COUNT 3.61 10^6/uL (4.00-5.40); WHITE BLOOD COUNT 7.3 10^3/uL (4.0-10.0)
[2020-10-30 07:25] LABS: ALBUMIN 2.5 GM/DL (3.2-5.2); ALT/SGPT 83 U/L (12-78); BILIRUBIN,DIRECT 0.1 MG/DL (0.0-0.2); BILIRUBIN,TOTAL 0.3 MG/DL (0.2-1.0); BLOOD UREA NITROGEN 8 MG/DL (7-18); C REACTIVE PROTEIN QUANTITATIV 1.75 MG/DL (0.00-0.30); CALCIUM LEVEL 8.7 MG/DL (8.5-10.1); CARBON DIOXIDE LEVEL 31 MEQ/L (21-32); CHLORIDE LEVEL 104 MEQ/L (98-107); CREATININE FOR GFR 0.53 MG/DL (0.55-1.30); FERRITIN 472 NG/ML (8-252); GLOMERULAR FILTRATION RATE > 60.0 (>60); GLUCOSE, FASTING 86 MG/DL (70-100); NT-PRO BNP 257 PG/ML (<125); POTASSIUM SERUM 4.1 MEQ/L (3.5-5.1); SODIUM LEVEL 142 MEQ/L (136-145); TOTAL PROTEIN 6.2 GM/DL (6.4-8.2)
[2020-10-30] MEDS: DIVALPROEX SPRINKLE 125 MG CAP PO SCH ×2 (08:10→20:07)
[2020-10-30] MEDS: PANTOPRAZOLE 40MG VIAL (C9113 PER 1) IV SCH (08:11)
[2020-10-30] MEDS: LR 1,000 ML IV SCH ×2 (08:11→23:57)
[2020-10-30] MEDS: ENOXAPARIN 60MG/0.6ML SYRINGE (J1650 PER 10MG) SC SCH ×2 (08:11→20:07)
[2020-10-30] MEDS: dexameTHASONE 20MG/5ML VIAL (J1100 PER 1MG) IV SCH (08:11)
[2020-10-30] MEDS: PHENobarbital ELIX 20 MG/5 ML UD PO SCH ×2 (08:11→20:08)
[2020-10-30] MEDS: CETIRIZINE (ZyrTEC) 5 MG/5 ML UDC DYE FREE PO SCH (20:07)
[2020-10-30] MEDS: ATORVASTATIN 10 MG TAB PO SCH (20:08)
--- NOTE | 2020-10-30 20:33 | IPNPDOC ---
Subjective Date Seen The patient was seen on 10/30/20. Subjective Chief Complaint/HPI Ms. Galdamez is a 25 year old female with Cerebral palsy here with COVID pneumonia. She has tolerated an oral diet and her abdominal discomfort improved. Otherwise, her oxygen requirements has been trending downwards. Spoke with father about plan. Will complete Remdesivir tomorrow. If she tolerates 4L of oxygen, she may be able to go home tomorrow with home oxygen. Objective Physical Examination General Exam: Positive: Cooperative Eye Exam: Negative: Sclera icteric ENT Exam: Positive: Atraumatic Neck Exam: Positive: Supple Chest Exam: Positive: Diminished Heart Exam: Positive: Rate Normal, Regular Rhythm Abdomen Exam: Positive: Normal bowel sounds, Soft Extremity Exam: Negative: Edema Neuro Exam: Negative: Normal Speech Psych Exam: Positive: Mood NL Assessment /Plan Assessment Ms. Galdamez is a 25 year old female with Cerebral palsy here with COVID pneum onia. She will complete remdesivir tomorrow. If she is able to be weaned down to 4L of oxygen possible discharge home tomorrow with home oxygen and PO steroids Plan/VTE VTE Prophylaxis Ordered?: Yes Plan 1. COVID pneumonia -Initially required 8L of oxygen, but has been weaned down to 4L today. Inflammatory markers also have been down trending -Will complete remdesivir tomorrow -Continue with steroids and anticoagulation -Possible discharge home with home oxygen tomorrow if she tolerates 4L 2. Gastritis -Tolerated diet today -Advance diet as tolerated -Continue Protonix, simethicone, and PRN Zofran 3. Cerebral palsy with seizure -Continue with Depakote and pheobarbital 4. Hyperlipidemia -Continue atorvastatin 5. DVT ppx -On 0.5mg/kg of Lovenox Disposition: Possible discharge tomorrow with home oxygen if she tolerates 4L or less VS, I&O, 24H, Fishbone Vital Signs/I&O Vital Signs Date Time Temp Pulse Resp B/P (MAP) Pulse Ox O2 Delivery O2 Flow Rate FiO2 10/30/20 16:00 98.4 69 19 105/54 (71) 96 High Flow Cannula 5.0 10/25/20 21:35 93 I&O- Last 24 Hours up to 6 AM 10/30/20 06:00 Intake Total 0 ml Output Total 0 ml Balance 0 ml Laboratory Data 24H LABS Laboratory Tests 2 10/30/20 06:22: Immature Granulocyte % (Auto) 2.9, Neutrophils (%) (Auto) 44.8, Lymphocytes (%) (Auto) 42.2, Monocytes (%) (Auto) 9.2H, Eosinophils (%) (Auto) 0.5, Basophils (%) (Auto) 0.4, Neutrophils # (Auto) 3.3, Lymphocytes # (Auto) 3.1, Monocytes # (Auto) 0.7, Eosinophils # (Auto) 0.0, Basophils # (Auto) 0.0, Nucleated Red Blood Cells % (auto) 0.3H, Fibrinogen 369, Anion Gap 7L, Glomerular Filtration Rate > 60.0, Calcium Level 8.7, Magnesium Level 2.0, Ferritin 472H, Total Bilirubin 0.3, Direct Bilirubin 0.1, Aspartate Amino Transf (AST/SGOT) 65H, Alanine Aminotransferase (ALT/SGPT) 83H, Alkaline Phosphatase 63, C-Reactive Protein, Quantitative 1.75H, UA-Ury-P-Type Natriuretic Peptide 257H, Total Protein 6.2L, Albumin 2.5L, Albumin/Globulin Ratio 0.7L, Procalcitonin 0.07 CBC/BMP Laboratory Tests 10/30/20 06:22 Microbiology Microbiology 10/25/20 Blood Culture - Preliminary, Resulted No Growth after 72 hours. All specime... 10/25/20 Blood Culture - Preliminary, Resulted No Growth after 72 hours. All specime... JOAQUINA WHITLOCK DO Oct 30, 2020 20:33
[2020-10-31] VITALS (7 sets, daily range): BP systolic 107; BP diastolic 59; O2SAT 90–97
[2020-10-31] MEDS: BENZONATATE 100 MG CAP PO SCH ×2 (06:13→14:00)
[2020-10-31] MEDS: guaiFENesin 200 MG TAB PO SCH ×2 (06:13→14:00)
[2020-10-31 06:31] LABS: BASO % 0.2 % (0.0-1.0); EOS % 0.4 % (0.0-3.0); HEMATOCRIT 33.6 % (36.0-47.0); HEMOGLOBIN 10.5 g/dl (12.0-15.5); LYMPH # 3.8 10^3/uL (1.5-5.0); LYMPH % 45.8 % (24.0-44.0); MEAN CORPUSCULAR HEMOGLOBIN 30.2 pg (27.0-33.0); MEAN CORPUSCULAR HGB CONC 31.3 g/dl (32.0-36.5); MEAN CORPUSCULAR VOLUME 96.6 fl (80.0-96.0); MONO # 0.7 10^3/uL (0.0-0.8); MONO % 8.2 % (0.0-5.0); NEUTROPHILS # 3.6 10^3/uL (1.5-8.5); NEUTROPHILS % 43.1 % (36.0-66.0); PLATELET COUNT, AUTOMATED 728 10^3/uL (150-450); RED BLOOD COUNT 3.48 10^6/uL (4.00-5.40); WHITE BLOOD COUNT 8.3 10^3/uL (4.0-10.0)
[2020-10-31 06:52] LABS: ALBUMIN 2.4 GM/DL (3.2-5.2); ALT/SGPT 79 U/L (12-78); BILIRUBIN,DIRECT < 0.1 MG/DL (0.0-0.2); BILIRUBIN,TOTAL 0.2 MG/DL (0.2-1.0); BLOOD UREA NITROGEN 10 MG/DL (7-18); C REACTIVE PROTEIN QUANTITATIV 1.22 MG/DL (0.00-0.30); CALCIUM LEVEL 9.2 MG/DL (8.5-10.1); CARBON DIOXIDE LEVEL 33 MEQ/L (21-32); CHLORIDE LEVEL 104 MEQ/L (98-107); FERRITIN 397 NG/ML (8-252); GLOMERULAR FILTRATION RATE > 60.0 (>60); GLUCOSE, FASTING 98 MG/DL (70-100); MAGNESIUM LEVEL 1.8 MG/DL (1.8-2.4); NT-PRO BNP 237 PG/ML (<125); POTASSIUM SERUM 3.9 MEQ/L (3.5-5.1); SODIUM LEVEL 144 MEQ/L (136-145)
[2020-10-31] MEDS: dexameTHASONE 20MG/5ML VIAL (J1100 PER 1MG) IV SCH (09:00)
[2020-10-31] MEDS: PANTOPRAZOLE 40MG VIAL (C9113 PER 1) IV SCH (09:00)
[2020-10-31] MEDS ORDERED: BENZ-18 PO (10:15)
[2020-10-31] MEDS ORDERED: PRED5PAK2 PO (10:15)
[2020-10-31] MEDS ORDERED: PANT40TA29 PO (10:15)
[2020-10-31] MEDS: LR 1,000 ML IV SCH (10:50)
[2020-10-31] MEDS: PHENobarbital ELIX 20 MG/5 ML UD PO SCH (11:32)
[2020-10-31] MEDS: ENOXAPARIN 60MG/0.6ML SYRINGE (J1650 PER 10MG) SC SCH (11:32)
[2020-10-31] MEDS: DIVALPROEX SPRINKLE 125 MG CAP PO SCH (11:32)
--- NOTE | 2020-11-01 | DS.PDOC ---
Discharge Summary General Date of Admission Oct 25, 2020 at 23:50 Date of Discharge Oct 31, 2020 Attending Physician: JOAQUINA WHITLOCK DO Discharge Summary PROCEDURES PERFORMED DURING STAY: None ADMITTING DIAGNOSES: 1. Acute hypoxic respiratory failure 2/2 COVID pneumonia 2. COVID pneumonia 3. Seizure disorder 4. Hyperlipidemia DISCHARGE DIAGNOSES: 1. Acute hypoxic respiratory failure 2/2 COVID pneumonia 2. COVID pneumonia 3. Seizure disorder 4. Hyperlipidemia 5. Gastritis 6. Seizure disorder COMPLICATIONS/CHIEF COMPLAINT: Covid 19. HISTORY OF PRESENT ILLNESS: Ms. Galdamez is a 25 year old female with Cerebral palsy who was recently admitted from 10/21/2020 to 10/22/2020 for COVID pneumonia who returns on 10/25/2020 for worsening of symptoms. Patient continued to have fevers around 101, coughing, loss of appetite, and dyspnea. She has been having diarrhea, and reported about 10 bowel movements a day. In the ED, patient initially required 4L NC and had a temperature of 101.8 HOSPITAL COURSE: During her hospital course, she required a maximum of 8L of NC. She was given a 5 day course of Remdesivir as well as IV Decadron and Lovenox. She responded well. Her inflammatory markers declined as her oxygen requirements declined. She was given Protonix and zofran to help with her gastritis. She started to tolerate more oral intake. Today, they were able to wean her off of oxygen. She was ready for home and was subsequently discharged with a steroid taper. DISCHARGE MEDICATIONS: Please see below. ALLERGIES: Please see below. PHYSICAL EXAMINATION ON DISCHARGE: VITAL SIGNS: Please see below. GENERAL: Comfortable, in no distress HEENT: Sclera clear, eyes don't focus together NECK: Supple CARDIOVASCULAR EXAMINATION: Regular rate and rhythm RESPIRATORY EXAMINATION: Lungs clear to auscultation bilaterally ABDOMINAL EXAMINATION: Soft, normal bowel sounds EXTREMITIES: Bilateral pitting edema SKIN: Warm and dry NEUROLOGICAL EXAMINATION: Intellectual disability PSYCHIATRIC EXAMINATION: Anxious, looked towards parents for comfort during exam LABORATORY DATA: Please see below. IMAGING: CXR Fairly extensive bilateral infiltrates consistent with pneumonia PROGNOSIS: Good ACTIVITY: As tolerated DIET: As tolerated DISCHARGE PLAN: Home with 08/06 (parents care for patient) and home health DISPOSITION: Home Health Service. DISCHARGE INSTRUCTIONS: 1. Follow up with PCP within 1 week 2. Continue taking steroid taper to completion DISCHARGE CONDITION: Stable Total time spent on discharge planning, discharge summary, and medication reconciliation: 45 minutes Vital Signs/I&Os Vital Signs Date Time Temp Pulse Resp B/P (MAP) Pulse Ox O2 Delivery O2 Flow Rate FiO2 10/31/20 10:00 90 Room Air 10/31/20 09:00 3.0 10/31/20 06:00 98.1 86 20 107/59 (75) 10/25/20 21:35 93 I&O- Last 24 Hours up to 6 AM 10/31/20 06:00 Intake Total 1140 ml Balance 1140 ml Laboratory Data Labs 24H Laboratory Tests 2 10/31/20 06:06: Immature Granulocyte % (Auto) 2.3, Neutrophils (%) (Auto) 43.1, Lymphocytes (%) (Auto) 45.8H, Monocytes (%) (Auto) 8.2H, Eosinophils (%) (Auto) 0.4, Basophils (%) (Auto) 0.2, Neutrophils # (Auto) 3.6, Lymphocytes # (Auto) 3.8, Monocytes # (Auto) 0.7, Eosinophils # (Auto) 0.0, Basophils # (Auto) 0.0, Nucleated Red Blood Cells % (auto) 0.4H, Fibrinogen 350, Anion Gap 7L, Glomerular Filtration Rate > 60.0, Calcium Level 9.2, Magnesium Level 1.8, Ferritin 397H, Total Bilirubin 0.2, Direct Bilirubin < 0.1, Aspartate Amino Transf (AST/SGOT) 52H, A lanine Aminotransferase (ALT/SGPT) 79H, Alkaline Phosphatase 57, C-Reactive Protein, Quantitative 1.22H, GL-Sqx-L-Type Natriuretic Peptide 237H, Total Protein 6.0L, Albumin 2.4L, Albumin/Globulin Ratio 0.7L, Procalcitonin <0.05 CBC/BMP Laboratory Tests 10/31/20 06:06 Microbiology Microbiology 10/25/20 Blood Culture - Final, Complete NO GROWTH AFTER 5 DAYS 10/25/20 Blood Culture - Final, Complete NO GROWTH AFTER 5 DAYS Discharge Medications Scheduled Atorvastatin Calcium (Atorvastatin Calcium) 10 Mg Tablet, 10 MG PO QHS, (Reported) Benzonatate (Benzonatate) 100 Mg Capsule, 200 MG PO Q8H Cetirizine Hcl (Cetirizine HCl) 1 Mg/1 Ml Solution, 10 ML PO QHS, (Reported) Divalproex Sodium (Depakote Sprinkle) 125 Mg Cap.dr.spr, 375 MG PO BID, (Reported) SPRINKLE CONTENTS ONTO A SPOON WITH APPLESAUCE. Fenofibric Acid (Choline) (Fenofibric Acid) 45 Mg Capsule.dr, 45 MG PO QHS, (Reported) SPRINKLE CONTENTS ON SPOON WITH APPLESAUCE AND EVENING DOSE OF DEPAKOTE Multivitamin (Flintstones) 1 Each Tab.chew, 1 CHW PO QHS, (Reported) Pantoprazole Sodium (Pantoprazole Sodium) 40 Mg Tablet.dr, 40 MG PO DAILY Phenobarbital (Phenobarbital) 20 Mg/5 Ml Elixir, 5 ML PO BID, (Reported) Prednisone (Prednisone) 5 Mg Tab.ds.pk, 0 PO ASDIRECTED 6 day dose pack taper Scheduled PRN Acetaminophen (Children's Tylenol) 160 Mg/5 Ml Oral.susp, 640 MG PO Q4H PRN for PAIN / FEVER, (Reported) Guaifenesin (Tussin) 100 Mg/5 Ml Liquid, 400 MG PO Q4H PRN for CONGESTION, (Reported) Ibuprofen (Ibuprofen) 100 Mg/5 Ml Oral.susp, 400 MG PO Q6H PRN for PAIN / FEVER, (Reported) Ipratropium/Albuterol Sulfate (Iprat-Albut 0.5-3(2.5) mg/3 ml) 3 Ml Ampul.neb, 3 ML INH Q6H PRN for SHORTNESS OF BREATH, (Reported) Allergies Coded Allergies: amoxicillin (Verified Allergy, Unknown, vomiting, 10/21/20) clavulanic acid (Verified Allergy, Unknown, vomiting, 10/21/20) diazepam (Verified Allergy, Unknown, 10/21/20) JOAQUINA WHITLOCK DO Nov 01, 2020 00:00
== END 2020-10-31 15:18 | disposition home health service (06) | DRG 137 ==
LOC: M ED 20:17 → M ED INP 23:50 → M 4MAIN 10-26 02:04
PROVIDERS: ADMIT Family Medicine; ATTEND Internal Medicine
PROC: 3E0333Z Introduction of Anti-inflammatory into Peripheral Vein, Percutaneous Approach (ICD-10-PCS; 2020-10-25)
PROC: XW033E5 Introduction of Remdesivir Anti-infective into Peripheral Vein, Percutaneous Approach, New Technology Group 5 (ICD-10-PCS; principal; 2020-10-26)
DX: U07.1 COVID-19 (principal); J96.01 Acute respiratory failure with hypoxia; F72 Severe intellectual disabilities; J12.89 Other viral pneumonia; G80.9 Cerebral palsy, unspecified; G40.909 Epilepsy, unspecified, not intractable, without status epilepticus; E78.5 Hyperlipidemia, unspecified; R13.10 Dysphagia, unspecified; K29.70 Gastritis, unspecified, without bleeding; Z79.899 Other long term (current) drug therapy; Z88.0 Allergy status to penicillin; Z88.8 Allergy status to other drugs, medicaments and biological substances

== ENCOUNTER → 2024-02-16 | Outpatient (CLI) | payer MEDICAID, BC ==
[~2024-02-16] MED LIST changes: +BENZ-18 PO; +CVS100LI4 PO; +FLINCHW2 PO; +IPRA0.00 INH; +PANT40TA29 PO; +PRED5PAK2 PO; +TYLE160S16 PO
[2024-02-16 10:27] LABS: BASO % 0.3 % (0.0-1.0); EOS % 0.6 % (0.0-3.0); HEMATOCRIT 44.9 % (36.0-47.0); HEMOGLOBIN 14.6 g/dl (12.0-15.5); LYMPH # 2.5 10^3/uL (1.5-5.0); LYMPH % 40.4 % (24.0-44.0); MEAN CORPUSCULAR HEMOGLOBIN 31.3 pg (27.0-33.0); MEAN CORPUSCULAR HGB CONC 32.5 g/dl (32.0-36.5); MEAN CORPUSCULAR VOLUME 96.1 fl (80.0-96.0); MONO # 0.5 10^3/uL (0.0-0.8); MONO % 7.2 % (2.0-8.0); NEUTROPHILS # 3.2 10^3/uL (1.5-8.5); NEUTROPHILS % 51.3 % (36.0-66.0); PLATELET COUNT, AUTOMATED 262 10^3/uL (150-450); RED BLOOD COUNT 4.67 10^6/uL (4.00-5.40); WHITE BLOOD COUNT 6.2 10^3/uL (4.0-10.0)
[2024-02-16 10:50] LABS: VALPROIC ACID (DEPAKOTE) 50.6 UG/ML (50.0-100.0)
[2024-02-16 10:52] LABS: ALBUMIN 4.6 G/DL (3.2-5.2); ALKALINE PHOSPHATASE 64 U/L (46-116); ALT/SGPT 27 U/L (7.0-40); AST/SGOT 28 U/L (<34); BILIRUBIN,TOTAL 0.3 MG/DL (0.3-1.2); BLOOD UREA NITROGEN 12 MG/DL (9-23); CALCIUM LEVEL 10.6 MG/DL (8.5-10.1); CARBON DIOXIDE LEVEL 30 MMOL/L (20-31); CHLORIDE LEVEL 103 MMOL/L (98-107); CHOLESTEROL LEVEL 232 MG/DL (<200); CHOLESTEROL RISK RATIO 4.18 (<5); CREATININE FOR GFR 0.51 MG/DL (0.55-1.30); GLOMERULAR FILTRATION RATE > 60.0 (>60); GLUCOSE, FASTING 83 MG/DL (60-100); HDL CHOLESTEROL 55.5 MG/DL (>40); LDL CHOLESTEROL 114.5 MG/DL (<100); NON-HDL-C 176.5 MG/DL; POTASSIUM SERUM 4.7 MMOL/L (3.5-5.1); SODIUM LEVEL 137 MMOL/L (136-145); TOTAL PROTEIN 7.9 G/DL (5.7-8.2); TRIGLYCERIDES LEVEL 310 MG/DL (<150)
[2024-02-16 10:53] LABS: THYROID STIMULATING HORMONE 1.527 uIU/ML (0.55-4.78)
[2024-02-16 10:56] LABS: PHENOBARBITAL LEVEL 15.8 UG/ML (15.0-40.0)
== END ==
LOC: M WUC 08:48
PROVIDERS: ATTEND Nurse Practitioner Family
DX: Z00.00 Encounter for general adult medical examination without abnormal findings (principal); G80.9 Cerebral palsy, unspecified; E78.2 Mixed hyperlipidemia

== ENCOUNTER → 2024-06-27 | Outpatient (CLI) | payer MEDICAID ==
[~2024-06-27] MED LIST changes: +PHEN20EL19 PO; -PHEN20EL4 PO
== END ==
LOC: M WUC 15:12
PROVIDERS: ATTEND Nurse Practitioner Family
DX: M79.645 Pain in left finger(s) (principal)

== ENCOUNTER → 2024-09-07 | Outpatient (CLI) | payer MEDICAID ==
[2024-09-07 10:56] LABS: BASO % 0.4 % (0.0-1.0); EOS # 0.1 10^3/uL (0.0-0.5); EOS % 0.8 % (0.0-3.0); HEMATOCRIT 43.6 % (36.0-47.0); HEMOGLOBIN 14.3 g/dl (12.0-15.5); LYMPH % 42.3 % (24.0-44.0); MEAN CORPUSCULAR HEMOGLOBIN 30.7 pg (27.0-33.0); MEAN CORPUSCULAR HGB CONC 32.8 g/dl (32.0-36.5); MEAN CORPUSCULAR VOLUME 93.6 fl (80.0-96.0); MONO # 0.5 10^3/uL (0.0-0.8); MONO % 6.7 % (2.0-8.0); NEUTROPHILS # 3.6 10^3/uL (1.5-8.5); NEUTROPHILS % 49.7 % (36.0-66.0); PLATELET COUNT, AUTOMATED 373 10^3/uL (150-450); RED BLOOD COUNT 4.66 10^6/uL (4.00-5.40); WHITE BLOOD COUNT 7.2 10^3/uL (4.0-10.0)
[2024-09-07 11:23] LABS: PHENOBARBITAL LEVEL 13.8 UG/ML (15.0-40.0); VALPROIC ACID (DEPAKOTE) 33.6 UG/ML (50.0-100.0)
[2024-09-07 11:28] LABS: ALKALINE PHOSPHATASE 62 U/L (46-116); ALT/SGPT 22 U/L (7.0-40); AST/SGOT 13 U/L (<34); BILIRUBIN,TOTAL 0.3 MG/DL (0.3-1.2); BLOOD UREA NITROGEN 13 MG/DL (9-23); CALCIUM LEVEL 10.1 MG/DL (8.5-10.1); CARBON DIOXIDE LEVEL 26 MMOL/L (20-31); CHLORIDE LEVEL 108 MMOL/L (98-107); CHOLESTEROL LEVEL 235 MG/DL (<200); CREATININE FOR GFR 0.57 MG/DL (0.55-1.30); GLOMERULAR FILTRATION RATE > 60.0 (>60); GLUCOSE, FASTING 70 MG/DL (60-100); HDL CHOLESTEROL 48.9 MG/DL (>40); LDL CHOLESTEROL 134.1 MG/DL (<100); NON-HDL-C 186.1 MG/DL; POTASSIUM SERUM 4.3 MMOL/L (3.5-5.1); SODIUM LEVEL 142 MMOL/L (136-145); TOTAL PROTEIN 7.9 G/DL (5.7-8.2); TRIGLYCERIDES LEVEL 260 MG/DL (<150)
[2024-09-07 11:30] LABS: THYROID STIMULATING HORMONE 1.937 uIU/ML (0.55-4.78)
== END ==
LOC: M WUC 08:49
PROVIDERS: ATTEND Nurse Practitioner Family
DX: Z00.00 Encounter for general adult medical examination without abnormal findings (principal); G80.9 Cerebral palsy, unspecified; E78.2 Mixed hyperlipidemia

== ENCOUNTER → 2024-09-23 | Outpatient (CLI) | payer MEDICAID ==
[2024-09-23 16:15] LABS: FREE T4 1.19 NG/DL (0.89-1.76); THYROID STIMULATING HORMONE 1.458 uIU/ML (0.55-4.78)
[2024-09-23 16:17] LABS: THYROGLOBULIN ANTIBODY < 15.0 U/ML (<60.0)
[2024-09-23 16:18] LABS: FREE T3 3.3 PG/ML (2.3-4.2); THYROID PEROXIDASE ANTIBODY 48 U/ML (<60.0)
== END ==
LOC: M LAB 14:14
PROVIDERS: ATTEND Nurse Practitioner Family
DX: H05.20 Unspecified exophthalmos (principal)

== ENCOUNTER → 2024-11-28 | Outpatient (CLI) | payer MEDICAID | LOC: M WUC 15:16 | PROVIDERS: ATTEND Nurse Practitioner Family | DX: M25.562 Pain in left knee (principal) ==

== ENCOUNTER → 2025-08-10 | Outpatient (CLI) | payer MEDICAID ==
[~2025-08-10] VITALS: Ht 149.9 cm; Wt 56.5 kg
[~2025-08-10] MED LIST changes: +ERYT2GEL OU; +FENO45CA PO; -FENO45CA3 PO; +LEVOTAB10 PO; +LR 1,000 ML IV SCH; +MIDAZOLAM INJ 2 MG/2 ML VIAL As Ordered ONE
[2025-08-10 08:10] VITALS: TEMP 98.4
[2025-08-10 08:42] VITALS: BP 113/67; O2SAT 97
== END ==
LOC: M RAD 07:43
PROVIDERS: ATTEND Nurse Practitioner Family
DX: G80.9 Cerebral palsy, unspecified (principal)
CPT/HCPCS: 70450; J2250

== ENCOUNTER → 2025-08-17 | Outpatient (REF) | payer MEDICAID ==
[~2025-08-17] MED LIST changes: -LR 1,000 ML IV SCH; -MIDAZOLAM INJ 2 MG/2 ML VIAL As Ordered ONE
[2025-08-17 18:09] LABS: APPEARANCE, URINE CLEAR (CLEAR); BACTERIA, URINE AUTO NEGATIVE (NEGATIVE); BILIRUBIN, URINE AUTO NEGATIVE (NEGATIVE); BLOOD, URINE BLOOD NEGATIVE (NEGATIVE); GLUCOSE, URINE (UA) AUTO NEGATIVE (NEGATIVE); KETONE, URINE AUTO NEGATIVE (NEGATIVE); LEUKOCYTE ESTERASE, URINE AUTO NEGATIVE (NEGATIVE); NITRITE, URINE AUTO NEGATIVE (NEGATIVE); PROTEIN, URINE AUTO NEGATIVE (NEGATIVE); RBC, URINE AUTO 0 /HPF (0-3); SPECIFIC GRAVITY URINE AUTO 1.014 (1.002-1.035); SQUAMOUS EPITHELIAL CELL UR AU 0 /HPF (0-6); UROBILINOGEN, URINE AUTO 0.2 mg/dL (0.0-2.0); WBC, URINE AUTO 0 /HPF (0-3)
== END ==
LOC: M LAB REF 15:00
PROVIDERS: ATTEND Nurse Practitioner Family
DX: R30.0 Dysuria (principal)

== ENCOUNTER → 2025-08-23 | Outpatient (CLI) | payer MEDICAID | LOC: M RAD 15:08 | PROVIDERS: ATTEND Nurse Practitioner Family | DX: Z98.2 Presence of cerebrospinal fluid drainage device (principal) ==

== ENCOUNTER → 2025-08-31 | Outpatient (CLI) | payer MEDICAID ==
[2025-08-31 10:17] LABS: BASO # 0.0 10^3/uL (0.0-0.2); BASO % 0.2 % (0.0-1.0); EOS # 0.1 10^3/uL (0.0-0.5); EOS % 0.7 % (0.0-3.0); LYMPH # 3.1 10^3/uL (1.5-5.0); LYMPH % 34.4 % (24.0-44.0); MONO # 0.5 10^3/uL (0.0-0.8); MONO % 5.8 % (2.0-8.0); NEUTROPHILS # 5.4 10^3/uL (1.5-8.5); NEUTROPHILS % 58.5 % (36.0-66.0); PLATELET COUNT, AUTOMATED 444 10^3/uL (150-450)
[2025-08-31 10:47] LABS: PHENOBARBITAL LEVEL 15.0 UG/ML (15.0-40.0)
[2025-08-31 10:48] LABS: VALPROIC ACID (DEPAKOTE) 33.2 UG/ML (50.0-100.0)
[2025-08-31 10:50] LABS: ALT/SGPT 24 U/L (7.0-40); AST/SGOT 24 U/L (<34); CALCIUM LEVEL 10.2 MG/DL (8.5-10.1); CARBON DIOXIDE LEVEL 26 MMOL/L (20-31); CHLORIDE LEVEL 103 MMOL/L (98-107); CHOLESTEROL LEVEL 205 MG/DL (<200); CHOLESTEROL RISK RATIO 5.29 (<5); CREATININE FOR GFR 0.52 MG/DL (0.55-1.30); GLOMERULAR FILTRATION RATE > 90.0 (>60); LDL CHOLESTEROL 111.7 MG/DL (<100); NON-HDL-C 166.3 MG/DL; POTASSIUM SERUM 5.1 MMOL/L (3.5-5.1); SODIUM LEVEL 141 MMOL/L (136-145); TRIGLYCERIDES LEVEL 273 MG/DL (<150)
[2025-08-31 10:51] LABS: FREE T4 1.19 NG/DL (0.89-1.76); TOTAL 25(OH) VITAMIN D 29.7 NG/ML (20.0-100.0)
== END ==
LOC: M LAB 08:13
PROVIDERS: ATTEND Nurse Practitioner Family
DX: Z00.00 Encounter for general adult medical examination without abnormal findings (principal); E78.2 Mixed hyperlipidemia; E55.9 Vitamin D deficiency, unspecified; G40.89 Other seizures